=== PATIENT | male | born 1965 | race African-American/Black ===

== ENCOUNTER → 2016-12-26 | Outpatient (CLI) | payer BC ==
[~2016-12-26] MED LIST: ARTHRITIS MED; BYSTOLIC; BYSTOLIC PO; CIPRO PO; CLEOCIN HCL300 M1 PO; COLACE PO; IBUPROFEN PO; ISOPTIN SR240 M1 PO; UNK B/P MED; VICODIN 5/500 T1 TAB PO; VOLTAREN75 MG PO
[2016-12-26 16:21] LABS: URINE APPEARANCE CLEAR; URINE BILIRUBIN NEG (NEG); URINE BLOOD NEG (NEG); URINE COLOR YELLOW; URINE GLUCOSE NEG (NEG); URINE KETONE NEG (NEG); URINE LEUKOCYTE ESTERASE NEG (NEG); URINE NITRATE NEG (NEG); URINE PROTEIN NEG (NEG)
[2016-12-26 16:24] LABS: URINE SOURCE CLEAN CATCH
[2016-12-26 16:45] LABS: BUN/CREATININE RATIO 14.16; CALCIUM SERUM 9.2 mg/dL (8.4-10.2); CREATININE SERUM 1.2 mg/dL (0.6-1.4); GLOM FILT RATE Estimated 79.6 mL/min (>60); POTASSIUM 3.9 mmol/L (3.5-5.1)
== END | disposition home or self-care (01) ==
LOC: CLAB 15:56
PROVIDERS: Internal Medicine Nephrology
DX: N18.2 Chronic kidney disease, stage 2 (mild) (principal)
CPT/HCPCS: 36415; 80048; 81003